=== PATIENT | female | born 1955 | race Caucasian/White ===

== ENCOUNTER → 2023-09-04 01:46 | Outpatient (CLI) | payer OTHER, SELFPAY ==
--- NOTE | 2023-09-04 08:00 | DI.US_ITS ---
Exam(s) US NEEDLE LOCAL OTHER WO RAD EXAM: FNA,ultrasound guided bx,multinodular thyroid,e04.2 COMPARISON: US US Thyroid, Soft Tissue Hd+Nck from 06/05/2023 TECHNIQUE: Ultrasound performed using standard protocol. FINDINGS: Sonography was provided for Dr. Cueto during the performance of a left lobe thyroid biopsy. Please refer to the procedure report for complete details. DATA REPOSITORY:
--- NOTE | 2023-09-04 11:45 | PAPNONF_PTH ---
PATIENT: Nancy Lemus LOC: [facility] Hunt#:[id number] AGE/SX: 69/F ROOM: RE09/04/[address]: Mark Anthony Cueto MD : [id number] BED: DIS: SPEC #: [id number] RECD: 09/04/23 12:42 STATUS: LISSETTE RELen #: [id number] VIOLET: 09/04/23 11:[address]: Mark Anthony Cueto DEPT: [facility] Cytology RECD BY: Lorene Schofield ENTERED: 09/04/23 12:43 SP TYPE: JESSICA CALABRESE DR: Tori Causey Tissues: 1 - BODY FLUID CYTO-FINE NEEDLE [facility]IRATE[facility] Procedures: BODY FLUID CYTO-FINE NEEDLE ASPIRATE[facility] Comments: [id number] (PATH FNA CONSULT) (REFRIGERATED)
--- NOTE | 2023-09-04 11:52 | W.PROCNOTE ---
Date of service: 09/04/23 Time of Service: 11:52 Procedure Note Date of procedure: 09/04/23 Procedure: Ultrasound-guided FNA, left thyroid nodule, pathology present Procedure Diagnosis: Left-sided 2.7 cm TR 4 thyroid nodule Procedure Indications: Patient with the above findings. Options were explained to the patient regarding further management. She opted to undergo the above procedure. Consent was filled out and signed. Procedure Description: The patient was positioned in supine position with her neck slightly extended and her head turned slightly to the right. She was prepped and draped in appropriate fashion and ultrasound used to localize the thyroid nodule on the left. 1% lidocaine with 1/100,000 epinephrine was injected in the skin and subcutaneous tissues overlying the nodule and then a 25-gauge needle passed repeatedly into the thyroid nodule. Cellular adequacy was verified by pathology. 2 additional passes were made for potential Afirma testing. There is no significant bleeding. The patient tolerated the procedure well. Her vital signs remained stable and she was able to ambulate afterwards without difficulty. A sterile dressing was applied prior to the patient's departure. She has been instructed to call me if she does not hear from me within 1 week with regard to pathology results. She will call with any signs of infection or any concerns. She may use ibuprofen or Tylenol for any discomfort. She will remove the bandage today.
== END ==
PROVIDERS: PCP Nurse Practitioner; Visit Provider Otolaryngology
DX: E04.2 Nontoxic multinodular goiter (principal)
CPT/HCPCS: 10005; 76942; 88104

== ENCOUNTER → 2025-09-03 06:07 | Outpatient (CLI) | payer MEDICAID, SELFPAY ==
--- NOTE | 2025-09-03 06:45 | DI.US_ITS ---
Exam(s) US THYROID EXAM: US THYROID CLINICAL HISTORY: Assess for stability,multinodular thyroid,e04.2. TECHNIQUE: Ultrasound thyroid performed using standard protocol. COMPARISON: US US THYROID from 09/03/2024 FINDINGS: ISTHMUS: 6 mm RIGHT LOBE: Size: 6.3 x 3.1 x 2.5 cm Echogenicity: Diffusely heterogeneous. Vascularity: Normal. Nodules: Stable solid hyperechoic nodule at the upper pole measuring 9 x 7 x 5 millimeters. It has indistinct margins and does not have visible echogenic foci. TR 3. LEFT LOBE: Size: 7.0 x 3.4 by 3.4 cm Echogenicity: Diffusely heterogeneous. Vascularity: Normal. Nodules: Solid hypoechoic nodule in the mid left lobe measuring roughly 2.4 by 2.2 by 2.5 cm. The no echogenic foci. Margins are indistinct in the nodule is difficult to discretely measure. Additional smaller similar appearing nodule measuring 1.0 x 1.0 x 1.2 Cm near the lower pole. Small mixed cystic and solid lesion at the upper pole measuring 1.7 x 1.0 x 1.9 cm. TR 2. OTHER FINDINGS: None. IMPRESSION: Multinodular goiter. DATA REPOSITORY:
== END ==
PROVIDERS: PCP Nurse Practitioner; Visit Provider Otolaryngology
DX: E04.2 Nontoxic multinodular goiter (principal)
CPT/HCPCS: 76536